=== PATIENT | female | born 1955 | race Caucasian/White ===

== ENCOUNTER 2023-05-12 11:49 | Day surgery (SDC) | payer BC, OTHER ==
[2023-05-08 12:45] VITALS: BMI 32.4
[2023-05-12] MEDS ORDERED: CEFAZOLIN 2 GM in DEXTROSE 5%-WATER - 50 ML IVPB ONE (12:08)
[2023-05-12] MEDS ORDERED: TRANEXAMIC ACID 1000 MG/10 ML VIAL IVPUSH ONE (12:08)
[2023-05-12] MEDS ORDERED: ROPIVACAINE HCL 0.5% 30ML VIAL ONE (12:47)
[2023-05-12] MEDS ORDERED: MIDAZOLAM HCL 2 MG/2 ML SINGLE DOSE VIAL ONE (12:47)
[2023-05-12] MEDS ORDERED: ALBUTEROL SO4 2.5/IPRATROPIUM 0.5 INH SOL 3 ML VIAL.NEB. NEB ONE (13:08)
[2023-05-12] MEDS ORDERED: ALBUTEROL SO4 HFA INHALER IH ONE (13:09)
[2023-05-12] MEDS ORDERED: ONDANSETRON 4 MG/2 ML VIAL IVPUSH PRN ×2 (13:10→15:00)
[2023-05-12] MEDS ORDERED: LACTATED RINGERS SOLUTION 1,000 ML IV SCH ×2 (13:15→15:00)
[2023-05-12] MEDS ORDERED: BUPIVICAINE 0.25%/MORPH PF/KETOROLAC - 51ML DISP.SYRINGE IA ONE ×3 (13:15→14:33)
[2023-05-12] MEDS ORDERED: ceFAZolin SODIUM 1 GM VIAL ONE (13:25)
[2023-05-12] MEDS ORDERED: oxyCODONE HCL 5 MG TABLET PO PRN (15:00)
[2023-05-12 16:20] VITALS: RESP 18
[2023-05-12] MEDS: ACETAMINOPHEN 1000 MG/100 ML BAG IVPB PRN (19:22)
[2023-05-12] MEDS: oxyCODONE HCL 5 MG TABLET PO PRN ×2 (19:23→23:25)
[2023-05-12] MEDS: SENNOSIDES/DOCUSATE COMBO (SENNA PLUS) TABLET (UD) PO SCH (21:03)
[2023-05-12] MEDS: CEFAZOLIN 2 GM in DEXTROSE 5%-WATER - 50 ML IVPB SCH (21:03)
[2023-05-12] MEDS ORDERED: ATORVASTATIN CA 40 MG TABLET (FP) PO SCH (22:00)
[2023-05-13] MEDS: CEFAZOLIN 2 GM in DEXTROSE 5%-WATER - 50 ML IVPB SCH (03:00)
[2023-05-13] MEDS: oxyCODONE HCL 5 MG TABLET PO PRN ×2 (05:37→09:14)
[2023-05-13] MEDS: ACETAMINOPHEN 1000 MG/100 ML BAG IVPB PRN (05:37)
[2023-05-13 06:39] VITALS: TEMP 98.1
[2023-05-13] MEDS ORDERED: ASPIRIN 325 MG TABLET PO SCH (08:00)
[2023-05-13 08:53] VITALS: BP 130/72; PULSE 79
[2023-05-13] MEDS: SENNOSIDES/DOCUSATE COMBO (SENNA PLUS) TABLET (UD) PO SCH (09:14)
[2023-05-13] MEDS ORDERED: PANTOPRAZOLE 40 MG TABLET PO SCH (10:00)
[2023-05-13] MEDS ORDERED: MULTIVITAMINS (DAILY MVI) TABLET (FP) PO SCH (10:00)
[2023-05-13] MEDS ORDERED: LOSARTAN 50MG/HCTZ 12.5MG 1 TAB PO SCH (10:00)
== END 2023-05-13 15:09 | disposition home or self-care (01) ==
LOC: FASUSAT 11:49 → FM/S 15:50 → FASUSAT 05-13 15:09
PROVIDERS: ATTEND Orthopaedic Surgery
PROC: 8E0Y0CZ Robotic Assisted Procedure of Lower Extremity, Open Approach (ICD-10-PCS; 2023-05-12)
PROC: 0SRC0L9 Replacement of Right Knee Joint with Medial Unicondylar Synthetic Substitute, Cemented, Open Approach (ICD-10-PCS; principal; 2023-05-12 13:37)
DX: M17.11 Unilateral primary osteoarthritis, right knee (principal)
CPT/HCPCS: 20985; 27446; C1776; S2900; 73560-TC-RT-FY; 94760; 97010-GP; 97116-GP; 97162-GP; C1713; C1889